=== PATIENT | female | born 1980 | race Two or more races ===

== ENCOUNTER 2018-07-19 05:08 | Inpatient (IN) | payer SELFPAY ==
[~2018-07-19] VITALS: Ht 162.6 cm; Wt 72.6 kg
[2018-07-19] MEDS ORDERED: CITRIC ACID/SODIUM CITRATE 30 ML SOLUTION. PO ONE (05:15)
[2018-07-19] MEDS ORDERED: 0.9 % SODIUM CHLORIDE 10 ML DISP.SYRIN. IV PRN ×2 (05:15→09:15)
[2018-07-19] MEDS ORDERED: IBUPROFEN 400 MG TABLET. PO PRN (05:15)
[2018-07-19] MEDS ORDERED: TERBUTALINE 1 MG/ML VIAL. SQ PRN (05:15)
[2018-07-19] MEDS ORDERED: OXYTOCIN 30 UNIT/500 ML PREMIX 500 ML IV PRN ×2 (05:15→09:15)
[2018-07-19 05:51] LABS: BASO % 1 % (0-3); EOS # 0.1 x10^3/uL (0.0-0.7); EOS % 1 % (0-3); HEMATOCRIT 28.3 % (36.0-47.0); HEMOGLOBIN 9.5 g/dL (12.0-15.5); LYMPH % 25 % (24-48); MEAN CORPUSCULAR HEMOGLOBIN 25 pg (25-35); MEAN CORPUSCULAR HGB CONC 33 g/dL (31-37); MEAN CORPUSCULAR VOLUME 75 fL (79-100); MONO # 0.5 x10^3/uL (0.0-1.1); MONO % 6 % (0-9); NEUT # 5.3 x10^3uL (1.8-7.7); NEUT % 67 % (31-73); PLATELET COUNT 167 x10^3/uL (140-400); RED BLOOD COUNT 3.78 x10^6/uL (3.50-5.40); RED CELL DISTRIBUTION WIDTH 15.4 % (11.5-14.5); WHITE BLOOD COUNT 7.9 x10^3/uL (4.0-11.0)
[2018-07-19] MEDS: IV RINGERS,LACTATED 1000ML 1,000 ML IV SCH ×3 (06:02→22:39)
[2018-07-19 06:41] VITALS: BP 132/77
[2018-07-19] MEDS ORDERED: METOCLOPRAMIDE HCL 10 MG/2 ML VIAL. ONE (07:04)
[2018-07-19] MEDS ORDERED: DEXAMETHASONE SOD PHOS 4 MG/ML VIAL ONE ×2 (07:04→07:15)
[2018-07-19] MEDS ORDERED: MORPHINE PF 5 MG/10 ML VIAL. ONE ×2 (07:04→07:15)
[2018-07-19] MEDS ORDERED: fentaNYL PF VIAL 100 MCG/2 ML VIAL ONE ×2 (07:04→07:15)
[2018-07-19] MEDS ORDERED: FAMOTIDINE 20 MG/2 ML VIAL ONE ×2 (07:04→07:15)
[2018-07-19] MEDS ORDERED: ONDANSETRON PF 4 MG/2 ML VIAL. ONE ×2 (07:04→07:15)
[2018-07-19] MEDS ORDERED: OXYTOCIN 10 UNIT/ML VIAL. ONE ×2 (07:04→07:15)
[2018-07-19] MEDS ORDERED: PHENYLEPHRINE in 0.9% NACL PF 1 MG/10 ML SYRINGE. IV ONE ×2 (07:05→07:15)
[2018-07-19] MEDS ORDERED: ePHEDrine PF IN SALINE 50 MG/10 ML SYRINGE. IV ONE ×2 (07:05→07:15)
--- NOTE | 2018-07-19 09:04 | PDOC1 ---
OB - History Hx of Present Care: Good Care Ultrasounds: Normal mid trimester US Obstetrical Complications: None Medical Complications: None Past Family/Social History * Past Medical, Surgical, Family and Obstetric Histories reviewed from chart. OB - Chief Complaint & HPI Date of Admission: Date of Admission: Jul 19, 2018 at 05:08 Chief Complaint/History Reason for admission: section Indication for : desires repeat OB - Admission Exam Physical Exam Vitals: VS - Last 72 Hours, by Label Date Time Temp Pulse Resp B/P (MAP) Pulse Ox O2 Delivery O2 Flow Rate FiO2 07/19/18 06:41 98.3 80 18 132/77 (95) Room Air 98.3 HEENT: Normal, Nasal Mucosa Normal, Oropharynx Normal, Moist Membranes, Fontanelles Normal Heart: Regular Rate Lungs: Clear, Equal Abdomen: Gravid Extremities: Normal Pulses, No tenderness or swelling Reflexes: Normal Cervical Dilatation: None Effacement: 0% Station: Ballotable Membranes: Intact Amniotic Fluid: Clear Heart Rate: Normal Accelerations: Accelerations Present Decelerations: No decelerations Short Term Variability: Present Contractions on Admission: None Assessment/Plan Assessment/Plan TIUP SRIRAM/S MARCELO GRIGGS MD Jul 19, 2018 09:04
[2018-07-19] MEDS ORDERED: ONDANSETRON PF 4 MG/2 ML VIAL. IV PRN (09:15)
[2018-07-19] MEDS ORDERED: MAG HYDROX/ALUMINUM HYD/SIMETH 30 ML ORAL.SUSP PO PRN (09:15)
[2018-07-19] MEDS ORDERED: MMR per PROTOCOL. MC PRN (09:15)
[2018-07-19] MEDS ORDERED: oxyCODONE/APAP 5/325 1 TAB TABLET PO PRN (09:15)
[2018-07-19] MEDS ORDERED: diphenhydrAMINE ORAL ELIXIR 12.5 MG/5 ML ML PO PRN (09:15)
[2018-07-19] MEDS ORDERED: ZOLPIDEM 5 MG TABLET. PO PRN (09:15)
[2018-07-19] MEDS ORDERED: KETOROLAC 30 MG/ML VIAL. IV ONE (11:30)
[2018-07-19 12:30] VITALS: BP 144/77
[2018-07-19 13:09] VITALS: BP 136/84
--- NOTE | 2018-07-19 13:45 | PDOC ---
BRIEF OPERATIVE NOTE Pre-Op Diagnosis TIUP Desires RC/S Post-Op Diagnosis Same Procedure Performed RLTC/S Surgeon Erin Anesthesia Type: Regional Blood Loss 600cc Specimens Obtained Blood gas Findings Female 08/26 Complications None MARCELO GRIGGS MD Jul 19, 2018 13:45
[2018-07-19] MEDS ORDERED: ceFAZolin SODIUM 1 GM in IV DEXTROSE 5% 50 ML IV SCH (14:00)
--- NOTE | 2018-07-19 14:13 | OP ---
DATE OF SURGERY: 07/19/2018 PREOPERATIVE DIAGNOSIS: Term intrauterine , desires repeat . POSTOPERATIVE DIAGNOSIS: Term intrauterine , desires repeat . PROCEDURE: Repeat low transverse . SURGEON: Leo Khan M.D. ENVIRONMENTAL AUDITOR: None. ANESTHESIA: Regional. ESTIMATED BLOOD LOSS: 600 mL. SPECIMENS: cord gas. FINDINGS: Female ; Apgars 8, 9 and 9; weight 7 pounds 12 ounces. Normal uterus, tubes and ovaries. COMPLICATIONS: None. CONDITION: Stable. DESCRIPTION OF PROCEDURE: After risks, benefits, indications, alternatives and expectations were discussed in detail with the patient, the patient was taken to OR theater and placed in supine position. After adequate regional anesthesia, the patient was prepped and draped in the usual sterile manner. Previous low transverse Pfannenstiel incision was taken out in toto with Bovie cautery, carried down through the subcutaneous tissue with Bovie cautery. Rectus fascia was nicked in the midline with Bovie cautery, extended laterally in each direction with Bovie cautery. Upper edge of the rectus fascia was grasped x 2 with Miles clamps, elevated above the rectus muscle, both bluntly and sharply with gloved hand and Bovie cautery. The same procedure was carried out on the lower edge of rectus fascia. Rectus muscles were split in midline and extended superiorly and inferiorly with Bovie cautery. Parietal peritoneum was entered bluntly with gentle stretch on the rectus muscle. Room was made for delivery of the infant. Jaylon retractor was placed within the pelvic cavity. Sponges were placed in the gutters bilaterally. The bladder flap was created with Metzenbaum scissors. Low-transverse hysterotomy incision was made sharply with a scalpel, with care not to injure any underlying structures. Membranes were ruptured. Clear fluid was noted. The incision was extended upwardly and laterally with gloved hand. Gloved hand was placed in the lower uterine segment. Secondary to the previous two C-sections, it was difficult to get the infant's head elevated. A single forceps blade was then used. This was also somewhat difficult. The baby's head was then rotated to the OA position and the vacuum was placed on the baby's head and the infant was delivered without any difficulty. cried spontaneously and moved all extremities. Cord was doubly clamped, transected cord between the two clamps and infant was handed to the nursing care in attendance. Cord blood samples were taken. Cord segment was taken for pH and placenta delivered spontaneously intact, 3-vessel cord. Uterus was wiped free of any adherent membranes. Low transverse hysterotomy incision was reapproximated with 0 Monocryl in a running locking manner. A second 0 Monocryl reapproximated in a vertical mattress stitch for additional strength. The bladder flap was reincorporated into the stitch. Sponges were removed from the gutters. Low uterine segment was inspected and noted to be free of any bleeding. Rectus muscles were reapproximated after the Jaylon retractor was removed with 3-0 Vicryl in a horizontal mattress stitch fashion. Areas of bleeding on rectus muscle was controlled with Bovie cautery. Rectus fascia was reapproximated with Stratafix 0 PDS. Subcutaneous tissue was irrigated copiously with warm normal saline. Skin was reapproximated with Insorb jazlyn. Sponge, needle and instrument counts were correct x 2 per the nursing staff. LEO KHAN MD DR: CHRISTINA/saritha JOB#: [id number] / [id number]
[2018-07-19 14:30] VITALS: BP 135/78
[2018-07-19] MEDS: ceFAZolin SODIUM IV Push 1 GM VIAL. IVP SCH ×2 (16:36→22:00)
[2018-07-19] MEDS ORDERED: KETOROLAC 30 MG/ML VIAL. IV PRN (17:30)
[2018-07-19 20:53] VITALS: BP 141/79
[2018-07-20 03:23] VITALS: BP 111/57
[2018-07-20] MEDS: IBUPROFEN 400 MG TABLET. PO SCH ×3 (06:37→22:04)
[2018-07-20] MEDS: oxyCODONE/APAP 5/325 1 TAB TABLET PO PRN ×5 (06:37→22:05)
[2018-07-20] MEDS: ceFAZolin SODIUM IV Push 1 GM VIAL. IVP SCH (06:38)
[2018-07-20 07:09] VITALS: BP 104/62
[2018-07-20 08:14] LABS: BASO % 0 % (0-3); EOS % 0 % (0-3); HEMATOCRIT 21.8 % (36.0-47.0); HEMOGLOBIN 7.2 g/dL (12.0-15.5); LYMPH % 22 % (24-48); MEAN CORPUSCULAR HEMOGLOBIN 25 pg (25-35); MEAN CORPUSCULAR HGB CONC 33 g/dL (31-37); MEAN CORPUSCULAR VOLUME 76 fL (79-100); MONO # 0.6 x10^3/uL (0.0-1.1); MONO % 6 % (0-9); NEUT # 6.8 x10^3uL (1.8-7.7); NEUT % 72 % (31-73); PLATELET COUNT 135 x10^3/uL (140-400); RED BLOOD COUNT 2.86 x10^6/uL (3.50-5.40); RED CELL DISTRIBUTION WIDTH 15.9 % (11.5-14.5); WHITE BLOOD COUNT 9.5 x10^3/uL (4.0-11.0)
--- NOTE | 2018-07-20 08:22 | PDOC ---
Provider Note Provider Note Doing well VSS Dressing CDI FU in AM Vital Sign - Last 24 Hours 07/19/18 07/19/18 07/19/18 07/19/18 12:30 13:09 14:30 20:53 Temp 98.3 97.9 99.3 98.3 97.9 99.3 Pulse 94 81 79 85 Resp 18 18 18 18 B/P (MAP) 144/77 (99) 136/84 (101) 135/78 (97) 141/79 (99) Pulse Ox 98 96 96 96 O2 Delivery Room Air Room Air Room Air Room Air 07/20/18 07/20/18 07/20/18 03:23 06:37 07:09 Temp 99.1 98.8 99.1 98.8 Pulse 83 92 Resp 18 B/P (MAP) 111/57 (75) 104/62 (76) Pulse Ox 97 96 O2 Delivery Room Air Room Air Room Air CBC - BMP 07/20/18 07:45 MARCELO GRIGGS MD Jul 20, 2018 08:22
[2018-07-20] MEDS: DOCUSATE SODIUM 100 MG CAPSULE. PO PRN ×2 (09:23→22:04)
[2018-07-20] MEDS: FERROUS SULFATE 325 MG TABLET. PO SCH ×2 (09:24→18:17)
[2018-07-20 10:40] VITALS: BP 110/50
[2018-07-20 14:00] VITALS: BP 123/64
[2018-07-20 18:22] VITALS: BP 121/63
[2018-07-20] MEDS: MAGNESIUM HYDROXIDE 2,400 MG/30 ML ORAL.SUSP. PO PRN (22:05)
[2018-07-20] MEDS: SIMETHICONE 80 MG TAB.CHEW PO PRN (22:08)
[2018-07-20 22:45] VITALS: BP 121/56
[2018-07-21] MEDS: oxyCODONE/APAP 5/325 1 TAB TABLET PO PRN ×4 (02:24→15:07)
[2018-07-21] MEDS: IBUPROFEN 400 MG TABLET. PO SCH ×2 (06:32→15:06)
[2018-07-21 06:40] VITALS: BP 132/71
[2018-07-21] MEDS: DOCUSATE SODIUM 100 MG CAPSULE. PO PRN ×2 (09:56→20:59)
[2018-07-21] MEDS: MAGNESIUM HYDROXIDE 2,400 MG/30 ML ORAL.SUSP. PO PRN (09:56)
[2018-07-21] MEDS: FERROUS SULFATE 325 MG TABLET. PO SCH (09:57)
[2018-07-21 11:25] VITALS: BP 128/77
[2018-07-21 15:25] VITALS: BP 122/74
--- NOTE | 2018-07-21 18:29 | PDOC ---
OB Progress Note Date of Service 07/21/18 Time of Evaluation 1825 Notes Pt. feeling well. No complaints. Lab Laboratory Tests Test 07/20/18 07:45 White Blood Count 9.5 x10^3/uL (4.0-11.0) Red Blood Count 2.86 x10^6/uL (3.50-5.40) Hemoglobin 7.2 g/dL (12.0-15.5) Hematocrit 21.8 % (36.0-47.0) Mean Corpuscular Volume 76 fL (79-100) Mean Corpuscular Hemoglobin 25 pg (25-35) Mean Corpuscular Hemoglobin Concent 33 g/dL (31-37) Red Cell Distribution Width 15.9 % (11.5-14.5) Platelet Count 135 x10^3/uL (140-400) Neutrophils (%) (Auto) 72 % (31-73) Lymphocytes (%) (Auto) 22 % (24-48) Monocytes (%) (Auto) 6 % (0-9) Eosinophils (%) (Auto) 0 % (0-3) Basophils (%) (Auto) 0 % (0-3) Neutrophils # (Auto) 6.8 x10^3uL (1.8-7.7) Lymphocytes # (Auto) 2.0 x10^3/uL (1.0-4.8) Monocytes # (Auto) 0.6 x10^3/uL (0.0-1.1) Eosinophils # (Auto) 0.0 x10^3/uL (0.0-0.7) Basophils # (Auto) 0.0 x10^3/uL (0.0-0.2) Medications Current Medications Sodium Chloride (Normal Saline Flush) 3 ml QSHIFT PRN IV AFTER MEDS AND BLOOD DRAWS; Start 07/19/18 at 05:15; Stop 07/19/18 at 14:31; Status DC Ringer's Solution 1,000 ml @ 125 mls/hr Q8H IV Last administered on 07/19/18at 22:39; Start 07/19/18 at 05:15 Terbutaline Sulfate (Brethine) 0.25 mg 1X PRN PRN SQ SEE COMMENTS; Start 07/19/18 at 05:15; Stop 07/19/18 at 14:31; Status DC Cefazolin Sodium/ Dextrose 50 ml @ 100 mls/hr 1X ONCE IV Last administered on 07/19/18at 06:02; Start 07/19/18 at 05:30; Stop 07/19/18 at 14:31; Status DC Oxytocin/Sodium Chloride 500 ml @ 0 mls/hr CONT PRN PRN IV Post delivery bleeding; Start 07/19/18 at 05:15; Stop 07/19/18 at 14:31; Status DC Ibuprofen (Motrin) 800 mg PRN Q6HRS PRN PO PAIN; Start 07/19/18 at 05:15; Stop 07/19/18 at 09:22; Status DC Citric Acid/ Sodium Citrate (Bicitra) 30 ml 1X ONCE PO Last administered on 07/19/18at 07:20; Start 07/19/18 at 05:15; Stop 07/19/18 at 14:31; Status DC Oxytocin/Sodium Chloride 500 ml @ 125 mls/hr CONT PRN IV EXCESSIVE POST- BLEEDING; Start 07/19/18 at 09:15; Stop 07/19/18 at 17:14; Status DC Ibuprofen (Motrin) 800 mg Q8HRS PO Last administered on 07/21/18at 15:06; Start 07/19/18 at 14:00 Ondansetron HCl (Zofran) 4 mg PRN Q6HRS PRN IV NAUSEA/VOMITING; Start 07/19/18 at 09:15; Stop 07/19/18 at 14:31; Status DC Docusate Sodium (Colace) 100 mg PRN BID PRN PO HARD STOOLS Last administered on 07/21/18at 09:56; Start 07/19/18 at 09:15 Magnesium Hydroxide (Milk Of Magnesia) 2,400 mg PRN DAILY PRN PO CONSTIPATION Last administered on 07/21/18at 09:56; Start 07/19/18 at 09:15 Al Hydroxide/Mg Hydroxide (Mylanta Plus Xs) 30 ml PRN Q4HRS PRN PO HEARTBURN / GAS; Start 07/19/18 at 09:15 Simethicone (Gas-X) 80 mg PRN AFTMEALHC PRN PO GAS / BLOATING Last administered on 07/20/18at 22:08; Start 07/19/18 at 09:15 Diphenhydramine HCl (Benadryl Oral Elixir) 12.5 mg PRN Q6HRS PRN PO ITCHING Last administered on 07/20/18at 06:39; Start 07/19/18 at 09:15 Ferrous Sulfate (Feosol) 325 mg BIDWMEALS PO Last administered on 07/21/18at 09:57; Start 07/19/18 at 17:00 Zolpidem Tartrate (Ambien) 5 mg PRN QHS PRN PO INSOMNIA, MAY REPEAT X1; Start 07/19/18 at 09:15 Info (Do NOT chart on this placeholder) 1 ea PRN 1X PRN MC SEE COMMENTS; Start 07/19/18 at 09:15 Info (Do NOT chart on this placeholder) 1 ea PRN 1X PRN MC SEE COMMENTS; Start 07/19/18 at 09:15 Oxycodone/ Acetaminophen (Percocet 5/325) 1 tab PRN Q4HRS PRN PO MODERATE PAIN Last administered on 07/21/18at 15:07; Start 07/19/18 at 09:15 Oxycodone/ Acetaminophen (Percocet 5/325) 2 tab PRN Q4HRS PRN PO SEVERE PAIN; Start 07/19/18 at 09:15 Cefazolin Sodium 1 gm/Dextrose 50 ml @ 100 mls/hr Q8HRS IV ; Start 07/19/18 at 14:00; Status UNV Cefazolin Sodium (Ancef) 1 gm Q8H IVP Last administered on 07/20/18at 06:38; Start 07/19/18 at 14:00; Stop 07/20/18 at 06:01; Status DC Ketorolac Tromethamine (Toradol 30mg Vial) 30 mg 1X ONCE IV Last administered on 07/19/18at 11:42; Start 07/19/18 at 11:30; Stop 07/19/18 at 11:31; Status DC Famotidine (Pepcid Vial) 20 mg STK-MED ONCE .ROUTE ; Start 07/19/18 at 07:15; Stop 07/19/18 at 15:32; Status DC Ondansetron HCl (Zofran) 4 mg STK-MED ONCE .ROUTE ; Start 07/19/18 at 07:15; Stop 07/19/18 at 15:32; Status DC Oxytocin (Pitocin) 50 unit STK-MED ONCE .ROUTE ; Start 07/19/18 at 07:15; Stop 07/19/18 at 15:32; Status DC Morphine Sulfate (Morphine Preservative Free) 5 mg STK-MED ONCE .ROUTE ; Start 07/19/18 at 07:15; Stop 07/19/18 at 15:32; Status DC Fentanyl Citrate (Fentanyl 2ml Vial) 100 mcg STK-MED ONCE .ROUTE ; Start 07/19/18 at 07:15; Stop 07/19/18 at 15:32; Status DC Dexamethasone Sodium Phosphate (Decadron) 8 mg STK-MED ONCE .ROUTE ; Start 07/19/18 at 07:15; Stop 07/19/18 at 15:32; Status DC Phenylephrine HCl (PHENYLEPHRINE in 0.9% NACL PF) 1 mg STK-MED ONCE IV ; Start 07/19/18 at 07:15; Stop 07/19/18 at 15:32; Status DC Ephedrine Sulfate (ePHEDrine PF IN SALINE SYRINGE) 50 mg STK-MED ONCE IV ; Start 07/19/18 at 07:15; Stop 07/19/18 at 15:32; Status DC Ketorolac Tromethamine (Toradol 30mg Vial) 30 mg PRN Q6HRS PRN IV PAIN Last administered on 07/19/18at 22:29; Start 07/19/18 at 17:30; Stop 07/24/18 at 17:29 Famotidine (Pepcid Vial) 20 mg STK-MED ONCE .ROUTE ; Start 07/19/18 at 07:04; Stop 07/19/18 at 17:52; Status DC Metoclopramide HCl (Reglan Vial) 10 mg STK-MED ONCE .ROUTE ; Start 07/19/18 at 07:04; Stop 07/19/18 at 17:52; Status DC Ondansetron HCl (Zofran) 4 mg STK-MED ONCE .ROUTE ; Start 07/19/18 at 07:04; Stop 07/19/18 at 17:52; Status DC Oxytocin (Pitocin) 10 unit STK-MED ONCE .ROUTE ; Start 07/19/18 at 07:04; Stop 07/19/18 at 17:52; Status DC Morphine Sulfate (Morphine Preservative Free) 5 mg STK-MED ONCE .ROUTE ; Start 07/19/18 at 07:04; Stop 07/19/18 at 17:53; Status DC Fentanyl Citrate (Fentanyl 2ml Vial) 100 mcg STK-MED ONCE .ROUTE ; Start 07/19/18 at 07:04; Stop 07/19/18 at 17:53; Status DC Dexamethasone Sodium Phosphate (Decadron) 4 mg STK-MED ONCE .ROUTE ; Start 07/19/18 at 07:04; Stop 07/19/18 at 17:53; Status DC Phenylephrine HCl (PHENYLEPHRINE in 0.9% NACL PF) 1 mg STK-MED ONCE IV ; Start 07/19/18 at 07:05; Stop 07/19/18 at 17:53; Status DC Ephedrine Sulfate (ePHEDrine PF IN SALINE SYRINGE) 50 mg STK-MED ONCE IV ; Start 07/19/18 at 07:05; Stop 07/19/18 at 17:53; Status DC Exam Abd: soft, non tender, fundus firm Prevena wound vac in place Assessment POD#2 s/p c/s Plan of Care: Continue current Tx, Mgmt KELVIN PACHECO Jr, MD Jul 21, 2018 18:29
[2018-07-21] MEDS: SIMETHICONE 80 MG TAB.CHEW PO PRN (20:59)
[2018-07-21 23:44] VITALS: BP 129/58
[2018-07-22] MEDS: IBUPROFEN 400 MG TABLET. PO SCH (06:00)
[2018-07-22 06:53] VITALS: BP 127/74
[2018-07-22] MEDS ORDERED: BISACODYL 10 MG SUPP.RECT. PR ONE (08:00)
[2018-07-22] MEDS: FERROUS SULFATE 325 MG TABLET. PO SCH (08:46)
[2018-07-22] MEDS: DOCUSATE SODIUM 100 MG CAPSULE. PO PRN (08:46)
[2018-07-22] MEDS: oxyCODONE/APAP 5/325 1 TAB TABLET PO PRN ×2 (08:47→14:24)
[2018-07-22 10:25] VITALS: BP 126/77
[2018-07-22 14:22] VITALS: BP 130/85
--- NOTE | 2018-07-22 14:22 | NUR ---
Discharge instructions reviewed with pt and through educational interpreter [id number] from [email or web address]. Verbalize understanding. Referred to "[facility]" booklet. Pt in stable condition; Up and about without difficulty. Pain controlled by PO meds. VSS. Tolerating food and fluids. Voiding and stooling. Incision healing well. Bonding well with .
--- NOTE | 2018-07-22 15:25 | NUR ---
ID Checked. Discharged per Wheelchair with . Accompanied by . Escorted to car by nursing personnel.
--- NOTE | 2018-07-23 16:09 | PDOC3 ---
OB DISCHARGE SUMMARY DATE OF ADMISSION: 07/19/18 DATE OF DISCHARGE: 07/22/18 REASON FOR ADMISSION: section PROCEDURES: None INTRAPARTUM PROCEDURES: : Low Cerv Trans PROCEDURES: None OPERATIONS: None DISCHARGE DIAGNOSIS: Term Delivered DISCHARGE INFORMATION: Activity, Diet HOSPITAL COURSE Unremarkable CONDITION AT DISCHARGE Stable MARCELO GRIGGS MD Jul 23, 2018 16:09
== END 2018-07-22 15:20 | disposition home or self-care (01) | DRG 788 ==
LOC: 3 SO LND 05:08 → 3 NORTH 13:46
PROVIDERS: ADMIT Specialist; ATTEND Specialist
PROC: 10D00Z1 Extraction of Products of Conception, Low, Open Approach (ICD-10-PCS; principal; 2018-07-19)
DX: O34.211 Maternal care for low transverse scar from previous cesarean delivery (principal); Z3A.39 39 weeks gestation of pregnancy; Z37.0 Single live birth
CPT/HCPCS: 36415; 85025; 86592; 86850; 86900; 86901; J0171; J0690; J0696; J1100; J1885; J2270; J2370; J2405; J2590; J2765; J3010; J3490; J7120